=== PATIENT | female | born 2000 | race Caucasian/White ===

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

== ENCOUNTER 2018-01-10 20:51 | Emergency (ER) | payer MEDICAID ==
--- NOTE | 2018-01-10 22:18 | ED ---
Psych HPI - General Chief Complaint: Psychiatric Symptoms Stated Complaint: MENTAL HEALTH Source: patient, family Mode of arrival: ambulatory - History of Present Illness Initial Comments: The patient is a 17-year-old female with no significant past medical history who presents to the emergency department today for evaluation of depression and suicidal thoughts. Patient reports that she has a very bad relationship with her father and that recently he has been causing a lot of problems in her life. She reports that she spends a lot of time alone and has been feeling very depressed and yesterday cut herself on her left wrist superficially. This was her first episode of self-harm behavior. She reports that she's just been feeling depressed over the past few years but over the past month has been feeling suicidal because she feels she cannot escape her current situation. - Related Data Home Medications Medication Instructions Recorded Confirmed No Known Home Medications 01/10/18 01/10/18 Allergies Allergy/AdvReac Type Severity Reaction Status Date / Time No Known Allergies Allergy Verified 01/10/18 21:23 Review of Systems ROS Statement: Those systems with pertinent positive or pertinent negative responses have been documented in the HPI. ROS Other: All systems not noted in ROS Statement are negative. Past Medical History Past Medical History: Asthma History of Any Multi-Drug Resistant Organisms: None Reported Past Surgical History: No Surgical Hx Reported Past Psychological History: No Psychological Hx Reported Smoking Status: Never smoker Past Alcohol Use History: None Reported Past Drug Use History: None Reported General Exam - General Exam Comments Initial Comments: Physical Exam GENERAL: Patient is well-developed and well-nourished. Patient is nontoxic and well- hydrated and is in no distress. HENT: Normocephalic, Atraumatic. EYES: PERRL, EOMI PULMONARY: Unlabored respirations. No audible rales rhonchi or wheezing was noted. CARDIOVASCULAR: There is a regular rate and rhythm without any murmurs gallops or rubs. ABDOMEN: Soft and nontender with normal bowel sounds. SKIN: Professional abrasion to left lateral wrist overlying the radius, no deep lacerations noted : Deferred NEUROLOGIC: Patient is alert and oriented x3. Moving all extremities spontaneously MUSCULOSKELETAL: Normal extremities with adequate strength and full range of motion. No lower extremity swelling or edema. No calf tenderness. PSYCHIATRIC: Depression Limitations: no limitations Limitations: no limitations Course Vital Signs 01/10/18 01/10/18 20:53 20:56 Temperature 97.9 F Pulse Rate 69 Respiratory 16 18 Rate Blood Pressure 143/89 O2 Sat by Pulse 100 Oximetry Medical Decision Making - Medical Decision Making Patient was seen and evaluated, history was obtained from the patient and mother bedside Patient with no psychiatric history presenting with depression and passive suicidal thoughts. Does express a lot of anxiety over stresses caused by her estranged father. Her estranged father is recently reappeared in her life and this is causing her significant stress. Patient also expresses stress over being alone a majority of the time. Patient' s mother works nights so patient is alone at home during the night. 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 Patient's medically cleared for evaluation by psychiatry. Patient was evaluated by the psychiatric nurse her care was discussed with the psychiatrist on-call and decision was made that the patient was stable for outpatient counseling. Patient was able to contract for safety. Her mother will stay home with her tonight. Patient was reevaluated after meeting with psych. Patient did confirm that she feels comfortable going home. Mother also. They feel comfortable with discharge at this time. Return parameters were discussed. I advised the patient that if she has any concerns or thoughts of self-harm or any feeling that she is not safe she can call 911 any time to return to the emergency department. Disposition Clinical Impression: Depression Disposition: HOME SELF-CARE Condition: Stable Instructions: Depression (ED), Help Prevent Suicide in Children and Adolescents (ED) Is patient prescribed a controlled substance at d/c from ED?: No Referrals: Telma Martinez MD [Primary Care Provider] - 1-2 days
[2018-01-11 02:02] VITALS: BP 129/86; PULSE 88; RESP 19; TEMP 97.8
== END 2018-01-11 00:33 | disposition home or self-care (01) ==
LOC: EC 20:51
DX: F32.9 Major depressive disorder, single episode, unspecified (principal)
CPT/HCPCS: 99284

== ENCOUNTER 2018-08-03 18:38 | Emergency (ER) | payer MEDICAID ==
[2018-08-03] MEDS ORDERED: ONDANSETRON 4 MG/2 ML VIAL IVP STA (20:16)
[2018-08-03] MEDS ORDERED: SODIUM CHLORIDE 0.9% 1,000 ML IV STA (20:16)
[2018-08-03 21:04] LABS: Basophils % (A) 0 %; Eosinophils # (A) 0.4 k/uL (0-0.7); Eosinophils % (A) 3 %; HCT 47.5 % (34.0-46.0); HGB 15.9 gm/dL (11.4-16.0); Lymphocytes # (A) 1.6 k/uL (1.0-4.8); Lymphocytes % (A) 12 %; MCHC 33.4 g/dL (31.0-37.0); Monocytes # (A) 0.3 k/uL (0-1.0); Monocytes % (A) 3 %; Neutrophils # (A) 10.6 k/uL (1.3-7.7); Neutrophils % (A) 81 %; Platelet Count 268 k/uL (150-450); RBC 5.28 m/uL (3.80-5.40); RDW 13.2 % (11.5-15.5)
[2018-08-03 21:06] LABS: Amorphous Sediment,Urine Many /hpf; Appearance,Urine Turbid (Clear); Bilirubin,Urine Negative (Negative); Blood,Urine Small (Negative); Color,Urine Yellow; Glucose,Urine (UA) Negative (Negative); Ketones,Urine Negative (Negative); Leukocyte Esterase,Urine Negative (Negative); Mucus,Urine Many /hpf; Nitrite,Urine Negative (Negative); PH, Urine 5.5 (5.0-8.0); Protein,Urine 1+ (Negative); WBC,Urine 6 /hpf (0-5)
[2018-08-03 21:13] LABS: ALT 27 U/L (9-52); AST 28 U/L (14-36); Albumin 4.9 g/dL (3.5-5.0); Alkaline Phosphatase 63 U/L (38-126); Amylase 47 U/L (30-110); Anion Gap 9 mmol/L; Blood Urea Nitrogen 8 mg/dL (7-17); Calcium 9.8 mg/dL (8.4-10.2); Carbon Dioxide 23 mmol/L (22-30); Chloride 108 mmol/L (98-107); Glucose 85 mg/dL (74-99); Lipase 48 U/L (23-300); Potassium 4.5 mmol/L (3.5-5.1); Sodium 140 mmol/L (137-145); Total Protein 8.2 g/dL (6.3-8.2)
[2018-08-03] MEDS ORDERED: KETOROLAC 30 MG/ML 1 ML VIAL IVP STA (21:18)
--- NOTE | 2018-08-03 22:34 | CT ---
EXAM: CT Abdomen and Pelvis With Intravenous Contrast CLINICAL HISTORY: ITS.REASON CT Reason: abdominal pain TECHNIQUE: Axial computed tomography images of the abdomen and pelvis with intravenous contrast. CTDI is 18.7 mGy and DLP is 902.7 mGy-cm. This CT exam was performed using one or more of the following dose reduction techniques: automated exposure control, adjustment of the mA and/or kV according to patient size, and/or use of iterative reconstruction technique. COMPARISON: No relevant prior studies available. FINDINGS: Lung bases: Unremarkable. No mass. No consolidation. ABDOMEN: Liver: Unremarkable. No mass. Gallbladder and bile ducts: Unremarkable. No calcified stones. No ductal dilation. Pancreas: Unremarkable. No mass. No ductal dilation. Spleen: Unremarkable. No splenomegaly. Adrenals: Unremarkable. No mass. Kidneys and ureters: Unremarkable. No solid mass. No hydronephrosis. Stomach and bowel: Unremarkable. No obstruction. No mucosal thickening. PELVIS: Appendix: No findings to suggest acute appendicitis. Bladder: Unremarkable. No mass. Reproductive: Unremarkable as visualized. ABDOMEN and PELVIS: Intraperitoneal space: Unremarkable. No free air. No significant fluid collection. Bones/joints: No acute fracture. No dislocation. Degenerative disc disease at L5-S1. Soft tissues: Small fat-containing umbilical hernia. Vasculature: Unremarkable. No abdominal aortic aneurysm. Lymph nodes: Unremarkable. No enlarged lymph nodes. IMPRESSION: No acute findings in the abdomen or pelvis.
[2018-08-03] MEDS ORDERED: ONDANSETRON 4 MG ODT STARTER PACK 2 TAB BTL PO STA (23:07)
--- NOTE | 2018-08-03 23:07 | ED ---
Abdominal Pain HPI - General Chief Complaint: Abdominal Pain Stated Complaint: NVD Time Seen by Provider: 08/03/18 20:07 Source: patient Mode of arrival: wheelchair Limitations: no limitations - History of Present Illness Initial Comments: 17-year-old female patient presents to the emergency department today for evaluation of vomiting, diarrhea, abdominal pain. Patient states over the last month she has been sick with suprapubic pain and pressure. Patient states she did develop urinary incontinence. States that she has seen the primary care physician as well as the urologist for evaluation and they were unable to determine the cause of her symptoms. Patient states earlier today she did develop nausea had 2 episodes of vomiting and also diarrhea. Patient states she was also incontinent of stool during a vomiting episode. She denies any hem aturia, dysuria, urinary urgency, urinary frequency. Denies any chance of . States that her doctor was going to perform a CAT scan, which she has scheduled on August 10. Patient denies any fever or chills with this. Denies any hematochezia or melena. Patient denies any recent rash, shortness breath, chest pain, back pain, numbness, tingling, dizziness, weakness, hematuria, dysuria, urinary urgency, urinary frequency, headache, visual changes, or any other complaints. - Related Data Home Medications Medication Instructions Recorded Confirmed No Known Home Medications 01/10/18 08/03/18 Allergies Allergy/AdvReac Type Severity Reaction Status Date / Time No Known Allergies Allergy Verified 08/03/18 20:35 Review of Systems ROS Statement: Those systems with pertinent positive or pertinent negative responses have been documented in the HPI. ROS Other: All systems not noted in ROS Statement are negative. Past Medical History Past Medical History: Asthma History of Any Multi-Drug Resistant Organisms: None Reported Past Surgical History: No Surgical Hx Reported Past Psychological History: No Psychological Hx Reported Smoking Status: Never smoker Past Alcohol Use History: None Reported Past Drug Use History: Marijuana General Exam Limitations: no limitations General appearance: alert, in no apparent distress, other (Physical well- developed, well-nourished adult female patient in no acute distress. Vital signs upon presentation are temperature 98.8F, pulse 69, respirations 20, blood pressure 139/88, pulse ox 98% on room air.) Eye exam: Present: normal appearance, PERRL, EOMI. Absent: scleral icterus, conjunctival injection, periorbital swelling ENT exam: Present: normal exam, normal oropharynx, mucous membranes moist Respiratory exam: Present: normal lung sounds bilaterally. Absent: respiratory distress, wheezes, rales, rhonchi, stridor Cardiovascular Exam: Present: regular rate, normal rhythm, normal heart sounds. Absent: systolic murmur, diastolic murmur, rubs, gallop, clicks GI/Abdominal exam: Present: soft, normal bowel sounds. Absent: distended, tenderness, guarding, rebound, rigid Neurological exam: Present: alert, oriented X3, CN II-XII intact Psychiatric exam: Present: normal affect, normal mood Skin exam: Present: warm, dry, intact, normal color. Absent: rash Course Vital Signs 08/03/18 08/03/18 19:39 23:31 Temperature 98.8 F 98 F Pulse Rate 69 62 Respiratory 20 19 Rate Blood Pressure 139/88 127/72 O2 Sat by Pulse 98 98 Oximetry Medical Decision Making - Medical Decision Making 17-year-old female patient presents to the emergency department today for evaluation of vomiting and diarrhea. Physical examination reveals soft nontender abdomen. White blood cell count is 13.0. Urinalysis shows [address] abdomen and pelvis was obtained and showed no acute abnormalities. I did discuss findings and results with the patient and parent. We did discuss symptoms are most likely related to viral gastroenteritis. White blood cell count is likely reactive from vomiting. We will send urine for culture. Patient will be discharged follow up with her primary care physician for recheck in 1-2 days. Return parameters were discussed in detail. She verbalizes understanding and agrees with this plan. - Lab Data Result diagrams: 08/03/18 20:53 08/03/18 20:53 Lab Results 08/03/18 08/03/18 08/03/18 Range/Units 20:15 20:15 20:53 WBC (4.0-11.0) k/uL RBC (3.80-5.40) m/uL Hgb (11.4-16.0) gm/dL Hct (34.0-46.0) % MCV (80.0-100.0) fL MCH (25.0-35.0) pg MCHC (31.0-37.0) g/dL RDW (11.5-15.5) % Plt Count (150-450) k/uL Neutrophils % % Lymphocytes % % Monocytes % % Eosinophils % % Basophils % % Neutrophils # (1.3-7.7) k/uL Lymphocytes # (1.0-4.8) k/uL Monocytes # (0-1.0) k/uL Eosinophils # (0-0.7) k/uL Basophils # (0-0.2) k/uL Sodium 140 (137-145) mmol/L Potassium 4.5 (3.5-5.1) mmol/L Chloride 108 H (98-107) mmol/L Carbon Dioxide 23 (22-30) mmol/L Anion Gap 9 mmol/L BUN 8 (7-17) mg/dL Creatinine 0.83 (0.52-1.04) mg/dL Est GFR (CKD-EPI)AfAm >90 (>60 ml/min/1.73 sqM) Est GFR (CKD-EPI)NonAf >90 (>60 ml/min/1.73 sqM) Glucose 85 (74-99) mg/dL Calcium 9.8 (8.4-10.2) mg/dL Total Bilirubin 1.0 (0.2-1.3) mg/dL AST 28 (14-36) U/L ALT 27 (9-52) U/L Alkaline Phosphatase 63 (38-126) U/L Total Protein 8.2 (6.3-8.2) g/dL Albumin 4.9 (3.5-5.0) g/dL Amylase 47 (30-110) U/L Lipase 48 (23-300) U/L Urine Color Yellow Urine Appearance Turbid H (Clear) Urine pH 5.5 (5.0-8.0) Ur Specific [place] 1.040 H (1.001-1.035) Urine Protein 1+ H (Negative) Urine Glucose (UA) Negative (Negative) Urine Ketones Negative (Negative) Urine Blood Small H (Negative) Urine Nitrite Negative (Negative) Urine Bilirubin Negative (Negative) Urine Urobilinogen 2.0 (<2.0) mg/dL Ur Leukocyte Esterase Negative (Negative) Urine WBC 6 H (0-5) /hpf Amorphous Sediment Many H (None) /hpf Urine Mucus Many H (None) /hpf Urine HCG, Qual Not Detected (Not Detectd) 08/03/18 Range/Units 20:53 WBC 13.0 H (4.0-11.0) k/uL RBC 5.28 (3.80-5.40) m/uL Hgb 15.9 (11.4-16.0) gm/dL Hct 47.5 H (34.0-46.0) % MCV 90.0 (80.0-100.0) fL MCH 30.0 (25.0-35.0) pg MCHC 33.4 (31.0-37.0) g/dL RDW 13.2 (11.5-15.5) % Plt Count 268 (150-450) k/uL Neutrophils % 81 % Lymphocytes % 12 % Monocytes % 3 % Eosinophils % 3 % Basophils % 0 % Neutrophils # 10.6 H (1.3-7.7) k/uL Lymphocytes # 1.6 (1.0-4.8) k/uL Monocytes # 0.3 (0-1.0) k/uL Eosinophils # 0.4 (0-0.7) k/uL Basophils # 0.0 (0-0.2) k/uL Sodium (137-145) mmol/L Potassium (3.5-5.1) mmol/L Chloride (98-107) mmol/L Carbon Dioxide (22-30) mmol/L Anion Gap mmol/L BUN (7-17) mg/dL Creatinine (0.52-1.04) mg/dL Est GFR (CKD-EPI)AfAm (>60 ml/min/1.73 sqM) Est GFR (CKD-EPI)NonAf (>60 ml/min/1.73 sqM) Glucose (74-99) mg/dL Calcium (8.4-10.2) mg/dL Total Bilirubin (0.2-1.3) mg/dL AST (14-36) U/L ALT (9-52) U/L Alkaline Phosphatase (38-126) U/L Total Protein (6.3-8.2) g/dL Albumin (3.5-5.0) g/dL Amylase (30-110) U/L Lipase (23-300) U/L Urine Color Urine Appearance (Clear) Urine pH (5.0-8.0) Ur Specific [place] (1.001-1.035) Urine Protein (Negative) Urine Glucose (UA) (Negative) Urine Ketones (Negative) Urine Blood (Negative) Urine Nitrite (Negative) Urine Bilirubin (Negative) Urine Urobilinogen (<2.0) mg/dL Ur Leukocyte Esterase (Negative) Urine WBC (0-5) /hpf Amorphous Sediment (None) /hpf Urine Mucus (None) /hpf Urine HCG, Qual (Not Detectd) - Radiology Data Radiology results: report reviewed, image reviewed CT abdomen and pelvis with contrast was obtained. Report was reviewed in its entirety. Impression by Dr. Lewis shows no acute findings in the abdomen or pelvis. Disposition Clinical Impression: Gastroenteritis Disposition: HOME SELF-CARE Condition: Good Instructions (If sedation given, give patient instructions): Gastroenteritis (ED) Additional Instructions: Start with clear liquid diet and advance as tolerated. Take medications as directed. Follow-up with your primary care physician for recheck in 1-2 days. Return to the emergency department immediately for any new, worsening, or concerning symptoms. Is patient prescribed a controlled substance at d/c from ED?: No Referrals: Telma Martinez MD [Primary Care Provider] - 1-2 days Time of Disposition: 23:07
[2018-08-03 23:33] VITALS: BP 127/72; PULSE 62; RESP 19; TEMP 98
== END 2018-08-03 23:31 | disposition home or self-care (01) ==
LOC: EC 18:38
DX: K52.9 Noninfective gastroenteritis and colitis, unspecified (principal)
CPT/HCPCS: 36415; 80053; 82150; 83690; 85025; 81001; 81025; 74177; 99284; 96374; 96375; 96361; J2405; J1885; S0119; Q9967

== ENCOUNTER → 2020-05-30 | Outpatient (CLI) | payer MEDICAID ==
[2020-05-30 18:55] LABS: HCT 42.9 % (37.2-46.3); HGB 14.8 g/dL (12.0-15.0); MCH 31.6 pg (27.0-32.0); MCHC 34.5 g/dL (32.0-37.0); MCV 91.5 fL (80.0-97.0); Mean Platelet Volume 13.8 fL (9.5-12.2); Platelet Count 202 X 10*3/uL (140-440); RBC 4.69 X 10*6/uL (4.10-5.20); RDW 11.5 % (11.5-14.5); WBC 8.19 X 10*3/uL (4.50-10.00)
[2020-05-30 22:42] LABS: HIV 2 AB Non-Reactive (Non-Reactive); HIV AB P24 Non-Reactive (Non-Reactive); HIV P24 AG Non-Reactive (Non-Reactive)
[2020-05-31 00:35] LABS: Hepatitis B Surface Antigen Non-Reactive (Non-Reactive)
[2020-05-31 01:45] LABS: Urine Alcohol Negative (Negative); Urine Barbiturate Negative (Negative); Urine Cocaine Negative (Negative); Urine Methadone Negative (Negative); Urine Opiates Negative (Negative); Urine Phencyclidine Negative (Negative)
== END | disposition home or self-care (01) ==
LOC: LABWHC1 13:36
PROVIDERS: ATTEND Obstetrics & Gynecology Obstetrics
DX: Z34.02 Encounter for supervision of normal first pregnancy, second trimester (principal); Z3A.00 Weeks of gestation of pregnancy not specified
CPT/HCPCS: 36415; 80306; 85027; 86762; 86780; 86850; 86900; 86901; 87340; 87390

== ENCOUNTER 2020-06-07 18:03 | Emergency (ER) | payer MEDICAID ==
[2020-06-07] MEDS ORDERED: SODIUM CHLORIDE 0.9% 1,000 ML IV STA (19:51)
[2020-06-07 20:38] LABS: Basophils % (A) 0 %; Eosinophils % (A) 0 %; HCT 41.9 % (34.0-46.0); HGB 14.4 gm/dL (11.4-16.0); Lymphocytes # (A) 1.3 k/uL (1.0-4.8); Lymphocytes % (A) 25 %; MCHC 34.3 g/dL (31.0-37.0); MCV 90.5 fL (80.0-100.0); Monocytes # (A) 0.2 k/uL (0-1.0); Monocytes % (A) 4 %; Neutrophils # (A) 3.6 k/uL (1.3-7.7); Neutrophils % (A) 70 %; Platelet Count 152 k/uL (150-450); RBC 4.63 m/uL (3.80-5.40); RDW 12.5 % (11.5-15.5); WBC 5.2 k/uL (3.8-10.6)
[2020-06-07 20:54] LABS: Appearance,Urine Turbid (Clear); Bacteria,Urine Many /hpf; Bilirubin,Urine Negative (Negative); Blood,Urine Negative (Negative); Budding Yeast,Urine Many /hpf; Calcium Oxalate Crystals,Urine Many /hpf; Color,Urine Yellow; Glucose,Urine (UA) Negative (Negative); Ketones,Urine 2+ (Negative); Leukocyte Esterase,Urine Large (Negative); Mucus,Urine Many /hpf; Nitrite,Urine Negative (Negative); Protein,Urine 1+ (Negative); RBC,Urine 11 /hpf (0-5); Specific Gravity,Urine 1.028 (1.001-1.035); Squamous Epithelial Cell,Urine 11 /hpf (0-4); Urobilinogen,Urine <2.0 mg/dL (<2.0); WBC,Urine 32 /hpf (0-5)
--- NOTE | 2020-06-07 21:26 | XR ---
EXAMINATION TYPE: XR chest 2V DATE OF EXAM: 06/07/2020 COMPARISON: 01/16/2016. HISTORY: Dizziness TECHNIQUE: Frontal and lateral views of the chest are obtained. FINDINGS: There is no focal air space opacity, pleural effusion, or pneumothorax seen. The cardiac silhouette size is within normal limits. The osseous structures are intact. IMPRESSION: No acute cardiopulmonary process.
[2020-06-07] MEDS ORDERED: cefTRIAXone IN SWFI 1,000 MG/10 ML SYRINGE IVP STA (21:32)
[2020-06-07 21:34] LABS: Chloride 103 mmol/L (98-107)
[2020-06-07 21:36] LABS: African American GFR (CKD) >90 (>60 ml/min/1.73 sqM); Albumin 4.1 g/dL (3.5-5.0); Alkaline Phosphatase 61 U/L (38-126); Anion Gap 10 mmol/L; Carbon Dioxide 22 mmol/L (22-30); Glucose 81 mg/dL (74-99); Non-African American GFR(CKD) >90 (>60 ml/min/1.73 sqM); Sodium 135 mmol/L (137-145); Total Bilirubin 0.4 mg/dL (0.2-1.3); Total Protein 6.9 g/dL (6.3-8.2)
[2020-06-07 21:38] LABS: ALT 13 U/L (4-34); AST 21 U/L (14-36); Blood Urea Nitrogen 7 mg/dL (7-17); Calcium 9.5 mg/dL (8.4-10.2); Potassium 3.8 mmol/L (3.5-5.1)
--- NOTE | 2020-06-07 22:02 | ED ---
Dizziness HPI - General Chief Complaint: Dizziness Stated Complaint: 18wks preg/dizziness Time Seen by Provider: 06/07/20 18:10 Source: patient Mode of arrival: wheelchair Limitations: no limitations - History of Present Illness Initial Comments: 19-year-old female, currently 18 weeks presents emergency room with reported dizziness, fatigue and presyncopal sensation. States that for the past several days she felt like she was going to pass out at work. States that she has had nausea however has had good oral intake. Denies any chest pain. No previous history of cardiac disease. She is currently 18 weeks and denies any issues with her . Denies any cramping or vaginal bleeding. No fevers or chills. Is concerned for Covid as she has had some contact with Covid positive people. Denies any history of sudden cardiac . No other alleviating, precipitating or modifying factors - Related Data Previous Rx's Medication Instructions Recorded Cephalexin [Keflex] 500 mg PO BID 1 Days #14 cap 06/07/20 Allergies Allergy/AdvReac Type Severity Reaction Status Date / Time No Known Allergies Allergy Verified 06/07/20 18:09 Review of Systems ROS Statement: Those systems with pertinent positive or pertinent negative responses have been documented in the HPI. ROS Other: All systems not noted in ROS Statement are negative. Past Medical History Past Medical History: Asthma History of Any Multi-Drug Resistant Organisms: None Reported Past Surgical History: No Surgical Hx Reported Past Psychological History: No Psychological Hx Reported Smoking Status: Never smoker Past Alcohol Use History: None Reported Past Drug Use History: Marijuana General Exam Limitations: no limitations General appearance: alert, in no apparent distress Head exam: Present: atraumatic, normocephalic, normal inspection Eye exam: Present: normal appearance, PERRL, EOMI. Absent: scleral icterus, conjunctival injection, periorbital swelling ENT exam: Present: normal exam, mucous membranes moist Neck exam: Present: normal inspection. Absent: tenderness, meningismus, lymphadenopathy Respiratory exam: Present: normal lung sounds bilaterally. Absent: respiratory distress, wheezes, rales, rhonchi, stridor Cardiovascular Exam: Present: regular rate, normal rhythm, normal heart sounds. Absent: systolic murmur, diastolic murmur, rubs, gallop, clicks GI/Abdominal exam: Present: soft, normal bowel sounds. Absent: distended, tenderness, guarding, rebound, rigid Extremities exam: Present: normal inspection, full ROM, normal capillary refill. Absent: tenderness, pedal edema, joint swelling, calf tenderness Back exam: Present: normal inspection Neurological exam: Present: alert, oriented X3, CN II-XII intact Psychiatric exam: Present: normal affect, normal mood Skin exam: Present: warm, dry, intact, normal color. Absent: rash Course Vital Signs 06/07/20 06/07/20 18:09 22:43 Temperature 97.9 F 99.9 F H Pulse Rate 64 102 H Respiratory 16 18 Rate Blood Pressure 114/73 126/80 O2 Sat by Pulse 100 98 Oximetry EKG Findings - EKG Comments: EKG Findings:: EKG demonstrates normal sinus rhythm with a ventricular rate of 67. MO interval 178. QRS 72. QTC of 450. No acute ST segment elevations or depressions Medical Decision Making - Medical Decision Making The patient is placed in the hallway 21. A thorough history and physical sy mptoms performed. Bedside ultrasound was performed which does demonstrate positive movement and positive heart tones. Heart rate of 133. IV is established the patient was given a liter bolus of normal saline. Laboratory studies were conducted. Urinalysis does demonstrate some white blood cells and white blood cell clumps. She was given a dose of Rocephin. Covid is detected. Chest x-ray demonstrates no acute cardiopulmonary process. At this time the patient will be discharged home. She maintains her oxygen saturations without increased work of breathing. Call and notify her OB of her diagnosis. Return to the emergency room for any new or worsening symptoms. Patient was placed on Keflex twice daily for the next 7 days. Patient agreed to this treatment plan and was discharged in stable condition - Lab Data Result diagrams: 06/07/20 20:30 06/07/20 20:30 Lab Results 06/07/20 06/07/20 06/07/20 Range/Units 20:30 20:30 20:30 WBC 5.2 (3.8-10.6) k/uL RBC 4.63 (3.80-5.40) m/uL Hgb 14.4 (11.4-16.0) gm/dL Hct 41.9 (34.0-46.0) % MCV 90.5 (80.0-100.0) fL MCH 31.0 (25.0-35.0) pg MCHC 34.3 (31.0-37.0) g/dL RDW 12.5 (11.5-15.5) % Plt Count 152 (150-450) k/uL MPV 10.0 Neutrophils % 70 % Lymphocytes % 25 % Monocytes % 4 % Eosinophils % 0 % Basophils % 0 % Neutrophils # 3.6 (1.3-7.7) k/uL Lymphocytes # 1.3 (1.0-4.8) k/uL Monocytes # 0.2 (0-1.0) k/uL Eosinophils # 0.0 (0-0.7) k/uL Basophils # 0.0 (0-0.2) k/uL Sodium 135 L (137-145) mmol/L Potassium 3.8 (3.5-5.1) mmol/L Chloride 103 (98-107) mmol/L Carbon Dioxide 22 (22-30) mmol/L Anion Gap 10 mmol/L BUN 7 (7-17) mg/dL Creatinine 0.56 (0.52-1.04) mg/dL Est GFR (CKD-EPI)AfAm >90 (>60 ml/min/1.73 sqM) Est GFR (CKD-EPI)NonAf >90 (>60 ml/min/1.73 sqM) Glucose 81 (74-99) mg/dL Calcium 9.5 (8.4-10.2) mg/dL Total Bilirubin 0.4 (0.2-1.3) mg/dL AST 21 (14-36) U/L ALT 13 (4-34) U/L Alkaline Phosphatase 61 (38-126) U/L Total Protein 6.9 (6.3-8.2) g/dL Albumin 4.1 (3.5-5.0) g/dL Urine Color Yellow Urine Appearance Turbid H (Clear) Urine pH 6.0 (5.0-8.0) Ur Specific [place] 1.028 (1.001-1.035) Urine Protein 1+ H (Negative) Urine Glucose (UA) Negative (Negative) Urine Ketones 2+ H (Negative) Urine Blood Negative (Negative) Urine Nitrite Negative (Negative) Urine Bilirubin Negative (Negative) Urine Urobilinogen <2.0 (<2.0) mg/dL Ur Leukocyte Esterase Large H (Negative) Urine RBC 11 H (0-5) /hpf Urine WBC 32 H (0-5) /hpf Urine WBC Clumps Moderate H (None) /hpf Ur Squamous Epith Cells 11 H (0-4) /hpf Calcium Oxalate Crystal Many H (None) /hpf Urine Bacteria Many H (None) /hpf Urine Mucus Many H (None) /hpf Urine Yeast (Budding) Many H (None) /hpf Coronavirus (PCR) (Not Detectd) 06/07/20 Range/Units 20:45 WBC (3.8-10.6) k/uL RBC (3.80-5.40) m/uL Hgb (11.4-16.0) gm/dL Hct (34.0-46.0) % MCV (80.0-100.0) fL MCH (25.0-35.0) pg MCHC (31.0-37.0) g/dL RDW (11.5-15.5) % Plt Count (150-450) k/uL MPV Neutrophils % % Lymphocytes % % Monocytes % % Eosinophils % % Basophils % % Neutrophils # (1.3-7.7) k/uL Lymphocytes # (1.0-4.8) k/uL Monocytes # (0-1.0) k/uL Eosinophils # (0-0.7) k/uL Basophils # (0-0.2) k/uL Sodium (137-145) mmol/L Potassium (3.5-5.1) mmol/L Chloride (98-107) mmol/L Carbon Dioxide (22-30) mmol/L Anion Gap mmol/L BUN (7-17) mg/dL Creatinine (0.52-1.04) mg/dL Est GFR (CKD-EPI)AfAm (>60 ml/min/1.73 sqM) Est GFR (CKD-EPI)NonAf (>60 ml/min/1.73 sqM) Glucose (74-99) mg/dL Calcium (8.4-10.2) mg/dL Total Bilirubin (0.2-1.3) mg/dL AST (14-36) U/L ALT (4-34) U/L Alkaline Phosphatase (38-126) U/L Total Protein (6.3-8.2) g/dL Albumin (3.5-5.0) g/dL Urine Color Urine Appearance (Clear) Urine pH (5.0-8.0) Ur Specific [place] (1.001-1.035) Urine Protein (Negative) Urine Glucose (UA) (Negative) Urine Ketones (Negative) Urine Blood (Negative) Urine Nitrite (Negative) Urine Bilirubin (Negative) Urine Urobilinogen (<2.0) mg/dL Ur Leukocyte Esterase (Negative) Urine RBC (0-5) /hpf Urine WBC (0-5) /hpf Urine WBC Clumps (None) /hpf Ur Squamous Epith Cells (0-4) /hpf Calcium Oxalate Crystal (None) /hpf Urine Bacteria (None) /hpf Urine Mucus (None) /hpf Urine Yeast (Budding) (None) /hpf Coronavirus (PCR) Detected A (Not Detectd) Disposition Clinical Impression: COVID-19, Second trimester , Pre-syncope, UTI (urinary tract infection) Disposition: HOME SELF-CARE Condition: Stable Instructions (If sedation given, give patient instructions): Coronavirus Disease 2019 (COVID-19), Urinary Tract Infection in (ED) Additional Instructions: You have been diagnosed with Covid. Quarantine until your symptoms improved. Take Tylenol for fever. Called your OB and inform them of your diagnosis. Return to the ED for any new or worsening symptoms. Prescriptions: Cephalexin [Keflex] 500 mg PO BID 1 Days #14 cap Is patient prescribed a controlled substance at d/c from ED?: No Referrals: None,Stated [Primary Care Provider] - 1-2 days Time of Disposition: 22:01
[2020-06-07 22:45] VITALS: BP 126/80; PULSE 102; RESP 18; TEMP 99.9
== END 2020-06-07 22:45 | disposition home or self-care (01) ==
LOC: EC 18:03
DX: O98.52 Other viral diseases complicating childbirth (principal); O26.812 Pregnancy related exhaustion and fatigue, second trimester; O99.322 Drug use complicating pregnancy, second trimester; O23.42 Unspecified infection of urinary tract in pregnancy, second trimester; O99.512 Diseases of the respiratory system complicating pregnancy, second trimester; U07.1 COVID-19; R55 Syncope and collapse; Z37.9 Outcome of delivery, unspecified; J45.909 Unspecified asthma, uncomplicated; F12.90 Cannabis use, unspecified, uncomplicated; Z3A.18 18 weeks gestation of pregnancy
CPT/HCPCS: 36415; 93005; 80053; 85025; 81001; 87086; 87635; 71046; 99284; 96374; J0696

== ENCOUNTER → 2020-06-18 | Outpatient (CLI) | payer MEDICAID ==
[~2020-06-18] MED LIST: cefTRIAXone 500 MG VIAL IM NR
[2020-06-18 15:11] VITALS: BP 122/76; PULSE 80; RESP 16; TEMP 97.8
== END ==
LOC: PROCWHC3 13:28
PROVIDERS: ATTEND Obstetrics & Gynecology Obstetrics
DX: A54.9 Gonococcal infection, unspecified (principal)
CPT/HCPCS: 96372; J2001; J0696

== ENCOUNTER 2020-11-05 06:00 | Inpatient (IN) | payer MEDICAID ==
[2020-11-05] MEDS ORDERED: TERBUTALINE 1 MG/ML VIAL SQ PRN (06:17)
[2020-11-05] MEDS ORDERED: CARBOPROST TROMETHAMINE 250 MCG/ML 1 ML AMP IM PRN (06:17)
[2020-11-05] MEDS ORDERED: OXYTOCIN 10 UNIT/ML 1 ML VIAL IM PRN (06:17)
[2020-11-05] MEDS ORDERED: METHYLERGONOVINE 0.2 MG/ML 1 ML AMP IM PRN (06:17)
[2020-11-05] MEDS ORDERED: LIDOCAINE 0.5% (PF) 5 MG/ML (50 ML SDV) SQ PRN (06:17)
[2020-11-05] MEDS: LACTATED RINGERS 1,000 ML IV SCH ×2 (06:21→14:39)
[2020-11-05] MEDS ORDERED: OXYTOCIN 30 UNITS/500 ML NS 30 UNIT in SALINE 1 500ML.BAG IV SCH ×2 (06:30→21:18)
[2020-11-05] MEDS ORDERED: AMPICILLIN 2,000 MG in SODIUM CHLORIDE 0.9% 100 ML IVPB ONE (06:30)
[2020-11-05 06:46] LABS: Basophils % (A) 0 %; Eosinophils # (A) 0.3 k/uL (0-0.7); Eosinophils % (A) 3 %; HCT 40.1 % (34.0-46.0); HGB 13.9 gm/dL (11.4-16.0); Lymphocytes # (A) 2.6 k/uL (1.0-4.8); Lymphocytes % (A) 25 %; MCHC 34.7 g/dL (31.0-37.0); MCV 95.3 fL (80.0-100.0); Mean Platelet Volume 11.5; Monocytes # (A) 0.4 k/uL (0-1.0); Monocytes % (A) 4 %; Neutrophils # (A) 6.8 k/uL (1.3-7.7); Neutrophils % (A) 66 %; Platelet Count 171 k/uL (150-450); RBC 4.21 m/uL (3.80-5.40); RDW 13.4 % (11.5-15.5); WBC 10.3 k/uL (3.8-10.6)
--- NOTE | 2020-11-05 09:28 | P.HPOB ---
History of Present Illness H&P Date: 11/05/20 Chief Complaint: IUP at 39 and 0/7 weeks, DIONI This is a 20-year-old 1 para 0 at 39-0/7 weeks that presents to labor and delivery for induction of labor. Patient has been being monitored for single umbilical artery, low baseline was appreciated with reassuring testing, biophysical profiles of 88. Patient notes good movement. She denies contractions or vaginal bleeding. On blood work this patient has a blood type of A+, rubella status immun e, B surface antigen negative, HIV negative, RPR nonreactive, group beta strep culture is positive. Review of Systems Constitutional: Denies chills, Denies fatigue, Denies fever Ears, nose, mouth and throat: Denies headache Cardiovascular: Reports leg edema Gastrointestinal: Denies constipation, Denies diarrhea, Denies nausea, Denies vomiting Genitourinary: Reports Past Medical History Past Medical History: Asthma Additional Past Medical History / Comment(s): Exercise induced asthma History of Any Multi-Drug Resistant Organisms: None Reported Past Surgical History: No Surgical Hx Reported Past Anesthesia/Blood Transfusion Reactions: No Reported Reaction Past Psychological History: No Psychological Hx Reported Smoking Status: Former smoker Past Alcohol Use History: None Reported Past Drug Use History: Marijuana Additional Drug Use History / Comment(s): Pt reports smoking medical marijuana before - Past Family History Mother History Unknown: Yes Family Medical History: Hypertension Medications and Allergies Home Medications Medication Instructions Recorded Confirmed Type Cephalexin [Keflex] 500 mg PO BID 1 Days #14 cap 06/07/20 06/18/20 Rx Allergies Allergy/AdvReac Type Severity Reaction Status Date / Time No Known Allergies Allergy Verified 06/18/20 15:12 Exam Osteopathic Statement: *. No significant issues noted on an osteopathic structural exam other than those noted in the History and Physical/Consult. Vital Signs Temp Pulse Resp BP 11/05/20 06:15 97.6 F 82 16 136/92 Intake and Output 11/04/20 11/05/20 11/05/20 22:59 06:59 14:59 Other: Weight 95.254 kg Targeted physical exam is performed in this date and last turner a well-nourished well-developed female in no acute distress, breathing is noted to be nonlabored, heart has a regular rhythm, abdomen is gravid. On cervical exam she is 2/50/-2 station amniotomy is performed and clear fluid was obtained. heart tones returned be category 1 and she is lane every 3 minutes. Results Result Diagrams: 11/05/20 06:25 Assessment and Plan (1) Term Current Visit: Yes Status: Acute Code(s): Z34.90 - ENCNTR FOR SUPRVSN OF NORMAL , UNSP, UNSP TRIMESTER SNOMED Code(s): 55007625 (2) Single umbilical artery Current Visit: Yes Status: Acute Code(s): Q27.0 - CONGENITAL ABSENCE AND HYPOPLASIA OF UMBILICAL ARTERY SNOMED Code(s): 632326710 (3) Positive GBS test Current Visit: Yes Status: Acute Code(s): B95.1 - STREPTOCOCCUS, GROUP B, CAUSING DISEASES CLASSD [facility] SNOMED Code(s): 938273057 Plan: 20-year-old at 39-0/7 weeks known single umbilical artery presents for induction of labor. Pitocin induction of labor is begun, known positive group beta strep cultures, IV antibiotic prophylaxis is begun. Patient does desire epidural, we'll place 1 cervical change is appreciated, anesthesia will be not ified.
[2020-11-05] MEDS: AMPICILLIN 1,000 MG in SODIUM CHLORIDE 0.9% 50 ML IVPB SCH ×3 (10:51→19:08)
[2020-11-05] MEDS ORDERED: BUTORPHANOL 1 MG/ML 1 ML VIAL IV PRN (12:13)
[2020-11-05] MEDS ORDERED: fentaNYL (PF) 50 MCG/ML 5 ML AMP ONE (15:27)
[2020-11-05] MEDS ORDERED: SODIUM CHLORIDE 0.9% 100 ML BAG ONE (15:27)
[2020-11-05] MEDS ORDERED: ROPIVACAINE 5MG/ML 20ML VIAL ONE (15:27)
[2020-11-05] MEDS ORDERED: CITRIC ACID-SODIUM CITRATE 15 ML CUP PO ONE (19:46)
[2020-11-05] MEDS ORDERED: MORPHINE SULFATE (PF) 0.3 MG/0.3 ML SYR ONE (20:12)
[2020-11-05] MEDS ORDERED: ONDANSETRON 4 MG/2 ML VIAL ONE (20:12)
[2020-11-05] MEDS ORDERED: OXYTOCIN 30 UNITS/500 ML NS BAG IV ONE (20:12)
[2020-11-05] MEDS ORDERED: HYDROmorphone 0.5 MG/0.5 ML SYRINGE IVP PRN (20:37)
[2020-11-05] MEDS ORDERED: KETOROLAC 15 MG/ML 1 ML VIAL IVP PRN (20:37)
[2020-11-05] MEDS ORDERED: diphenhydrAMINE 50 MG/ML 1 ML VIAL IVP PRN ×3 (20:37→21:18)
[2020-11-05] MEDS ORDERED: NALOXONE 0.4 MG/ML 1 ML VIAL IV PRN ×2 (20:37→21:18)
[2020-11-05] MEDS ORDERED: ONDANSETRON 4 MG/2 ML VIAL IVP PRN ×2 (20:37→21:18)
--- NOTE | 2020-11-05 21:10 | P.OP ---
Date of Procedure: 11/05/20 Preoperative Diagnosis: IUP at 39-0/7 weeks, arrest of descent and dilation Postoperative Diagnosis: Same Procedure(s) Performed: Primary low transverse section Anesthesia: epidural Surgeon: Jadyn Jc Building Maintenance Repairer #1: Jens Kovacs Estimated Blood Loss (ml): 238 IV fluids (ml): 1,200 Urine output (ml): 200 Pathology: other (Placenta) Disposition: observation Indications for Procedure: 20-year-old at 39 0/7 weeks that presented for induction of labor. Patient was noted to be 5 cm for approximately 4+ hours, no descent of the head was appreciated, option for primary was discussed with patient given her arrest of descent and dilation over the last 4 hours. Patient elected primary . Operative Findings: Normal uterus tubes and ovaries were appreciated, viable female delivered at 2026, weight of 7 lbs. 5 oz. with Apgars of 8 and 9 at one and 5 minutes respectively Description of Procedure: Patient was taken back to the operating suite where epidural anesthesia was found be adequate. She was then prepped and draped in the normal sterile fashion in the dorsal supine position. A Pfannenstiel skin incision was made the scalpel and carried through the underlying layer of fascia. Fascia was incised in the midline and extended laterally. The superior aspect of the fascial incision was then grasped farooq clamps, elevated and underlying rectus muscles dissected off sharply. Attention was then turned to the inferior aspect the fascial incision which was grasped farooq clamps, elevated and underlying rectus muscles dissected off sharply. Rectus muscles were in the midline the peritoneum was identified and entered. The bladder blade was then inserted into the pelvis. The vesicouterine peritoneum was identified and the bladder flap was created using sharp and blunt dissection. The bladder blade was then reinserted into the pelvis. Hysterotomy incision was made the scalpel, and extended laterally. The was encountered in a vertex presentation. The was delivered in the usual fashion the umbilicus was doubly clamped and cut. The placenta was then delivered spontaneously intact with a three-vessel cord being noted. The uterine incision was then closed with 0 Vicryl running locked fashion. A second imbricating suture was performed. Bleeding was noted on the right-hand side of the uterosacral multiple [id number] sutures were used to obtain hemostasis. The bladder was noted to be draining clear yellow urine throughout. The uterus was returned to the abdomen and hysterotomy incision was inspected hemostasis was appreciated. Surgicel powder was placed along the hysterotomy incision. The gutters had been cleared of all clots and debris prior to this. The peritoneum was then loosely reapproximated. The rectus muscles were then inspected and found be hemostatic. The fascia was then closed with 0 Vicryl in a running fashion from one lateral edge the other. The subcutaneous tissue was then irrigated found to be hemostatic and closed with 3-0 Vicryl. Skin was then closed with 4-0 Vicryl in a subcuticular fashion. Steri-Strips and sterile dressings were applied. The uterus is noted to be firm and below the umbilicus at this time. All counts were noted to be correct 2. PATIENT AND TOLERATED DELIVERY WELL AND ARE RESTING COMFORTABLY.
[2020-11-05] MEDS ORDERED: diphenhydrAMINE 25 MG CAP PO PRN (21:18)
[2020-11-05] MEDS ORDERED: METOCLOPRAMIDE 5 MG/ML 2 ML VIAL IVP PRN (21:18)
[2020-11-05] MEDS ORDERED: SIMETHICONE 80 MG CHEWABLE PO PRN (21:18)
[2020-11-05] MEDS ORDERED: diphenhydrAMINE 50 MG CAP PO PRN (21:18)
[2020-11-05] MEDS ORDERED: ZOLPIDEM 5 MG TAB PO PRN (21:18)
[2020-11-05] MEDS: ACETAMINOPHEN IV (For NPO) 1,000 MG in EMPTY BAG 1 BAG IVPB SCH (22:33)
[2020-11-05] MEDS: SENNOSIDES-DOCUSATE SODIUM 1 EACH TAB PO SCH (23:13)
[2020-11-05] MEDS: ACETAMINOPHEN TAB 500 MG TAB PO SCH (23:14)
[2020-11-06] MEDS: LACTATED RINGERS 1,000 ML IV SCH ×4 (00:31→07:25)
[2020-11-06] MEDS: AMPICILLIN 1,000 MG in SODIUM CHLORIDE 0.9% 50 ML IVPB SCH (00:32)
[2020-11-06] MEDS: IBUPROFEN 600 MG TAB PO SCH ×3 (03:03→16:25)
[2020-11-06] MEDS: IBUPROFEN IV 800 MG in SODIUM CHLORIDE 0.9% 250 ML IV SCH ×2 (03:04→04:24)
--- NOTE | 2020-11-06 06:44 | P.PN ---
Progress Note - Text Progress Note Date: 11/06/20 Postoperative day 1 status post section under epidural anesthesia, and epidural morphine given for postoperative analgesia, patient doing well, there is no anesthesia related complications, Patient had no headache, vital signs stable , Assessment and plan= postop day 1 status post , doing well there is no anesthesia related complication.
[2020-11-06 06:54] LABS: Basophils % (A) 0 %; Eosinophils # (A) 0.2 k/uL (0-0.7); Eosinophils % (A) 2 %; HCT 32.7 % (34.0-46.0); HGB 11.2 gm/dL (11.4-16.0); Lymphocytes % (A) 19 %; MCH 33.3 pg (25.0-35.0); MCHC 34.4 g/dL (31.0-37.0); MCV 96.9 fL (80.0-100.0); Mean Platelet Volume 12.6; Monocytes # (A) 0.3 k/uL (0-1.0); Monocytes % (A) 3 %; Neutrophils # (A) 7.9 k/uL (1.3-7.7); Neutrophils % (A) 75 %; Platelet Count 133 k/uL (150-450); RBC 3.37 m/uL (3.80-5.40); RDW 13.4 % (11.5-15.5); WBC 10.6 k/uL (3.8-10.6)
[2020-11-06] MEDS: ACETAMINOPHEN TAB 500 MG TAB PO SCH ×3 (07:25→21:24)
[2020-11-06] MEDS: ACETAMINOPHEN IV (For NPO) 1,000 MG in EMPTY BAG 1 BAG IVPB SCH (07:50)
[2020-11-06 08:10] LABS: Large Platelets Present
[2020-11-06] MEDS: SENNOSIDES-DOCUSATE SODIUM 1 EACH TAB PO SCH ×3 (21:25→21:26)
[2020-11-07] MEDS: IBUPROFEN 600 MG TAB PO SCH ×3 (00:08→09:29)
[2020-11-07] MEDS: LACTATED RINGERS 1,000 ML IV SCH ×2 (02:37→02:45)
[2020-11-07] MEDS: IBUPROFEN IV 800 MG in SODIUM CHLORIDE 0.9% 250 ML IV SCH ×2 (02:44→02:45)
[2020-11-07] MEDS: ACETAMINOPHEN TAB 500 MG TAB PO SCH ×3 (02:55→13:29)
--- NOTE | 2020-11-07 08:40 | P.PNOBGPC ---
Subjective - Subjective Principal diagnosis: pod1 ltcs Interval history: Patient is doing well. She is ambulating and voiding without difficulty. Pain is well-controlled. She is breast-feeding with some difficulty and using a nipple shield. Her lochia is minimal. Patient reports: Reports appetite normal, Reports voiding normally, Reports pain well controlled, Reports ambulating normally : doing well, nursing well Objective - Vital Signs Latest vital signs: Vital Signs Temp Pulse Resp BP Pulse Ox 11/07/20 05:00 16 98 11/07/20 02:58 16 11/07/20 01:00 16 98 11/07/20 00:00 98.0 F 67 16 124/69 98 11/06/20 23:00 16 11/06/20 21:00 16 98 11/06/20 20:00 97.9 F 67 16 127/70 98 11/06/20 19:00 16 11/06/20 16:40 16 97 11/06/20 16:00 98.3 F 69 16 137/75 11/06/20 15:00 16 11/06/20 13:00 97.7 F 70 16 141/79 97 11/06/20 12:00 97.7 F 70 16 141/79 11/06/20 11:00 97.7 F 70 16 141/79 11/06/20 09:00 16 97 Intake and Output 11/06/20 11/07/20 11/07/20 22:59 06:59 14:59 Other: # Voids 2 - Exam Extremities: Present: normal, edema Abdomen: Present: normal appearance Incision: Present: normal, intact Uterus: Present: normal, firm Assessment and Plan (1) Term Current Visit: Yes Status: Acute Code(s): Z34.90 - ENCNTR FOR SUPRVSN OF NORMAL , UNSP, UNSP TRIMESTER SNOMED Code(s): 68416879 (2) Single umbilical artery Current Visit: Yes Status: Acute Code(s): Q27.0 - CONGENITAL ABSENCE AND HYPOPLASIA OF UMBILICAL ARTERY SNOMED Code(s): 107963320 (3) Positive GBS test Current Visit: Yes Status: Acute Code(s): B95.1 - STREPTOCOCCUS, GROUP B, [facility] Code(s): 403436312 (4) S/P section Current Visit: Yes Status: Acute Code(s): Z98.891 - HISTORY OF UTERINE SCAR FROM PREVIOUS SURGERY SNOMED Code(s): 195313472 Plan: 20-year-old G1 now P1 status post primary for arrest of descent and dilation. Patient is doing well on this postoperative day #1. Plan to continue routine postoperative care and anticipate discharge home on postop day 2.
--- NOTE | 2020-11-07 08:43 | P.DS ---
Providers Date of admission: 11/05/20 06:06 Expected date of discharge: 11/07/20 Attending physician: Jadyn Jc Primary care physician: Stated None - Discharge Diagnosis(es) (1) Term Current Visit: Yes Status: Acute (2) Single umbilical artery Current Visit: Yes Status: Acute (3) Positive GBS test Current Visit: Yes Status: Acute (4) S/P section Current Visit: Yes Status: Acute Hospital Course: 20-year-old G1 now P1 presented to labor and delivery on Thursday for planned induction of labor at 39-0/7 weeks. Patient had known single umbilical artery. Patient had had reassuring testing throughout care. For full details on this patient please see the dictated history and physical. Patient was admitted to labor and delivery and Pitocin induction of labor was begun. Patient progressed very slowly through labor amniotomy was performed and clear fluid was obtained. Patient did eventually become uncomfortable and requested epidural placement. Epidural was placed without difficulty by the anesthesia department. Patient was noted to have arrest of dilation for 4 hours at 5 cm. At that time discussion with patient regarding arrest of dilation was had, she elected primary . Patient was taken back for primary which was completed without difficulty. For full details on the please see the operative report. On this postoperative day #2 she is ambulating and voiding without difficulty. She is tolerating regular diet without nausea or vomiting. She is breast-feeding with a nipple shield. She denies concerns and states she is ready for discharge home. Patient Condition at Discharge: Good Plan - Discharge Summary New Discharge Prescriptions: No Action Cephalexin [Keflex] 500 mg PO BID 1 Days #14 cap Discharge Medication List Cephalexin [Keflex] 500 mg PO BID 1 Days #14 cap 06/07/20 [Rx] Follow up Appointment(s)/Referral(s): Jadyn Jc DO [Doctor of Osteopathic Medicine] - 2 Weeks Patient Instructions/Handouts: (DC), (GEN) Activity/Diet/Wound Care/Special Instructions: [id number] ibuprofen 600 mg every 6 hours as needed for pain. She is currently alternating with Tylenol here in the hospital. Patient can expect menstrual-like bleeding for up to 6 weeks after delivery. Patient is to call the office and have a post operative check at 2 weeks. Patient is counseled that if she should have any concerns prior to this visit she should call the office. Discharge Disposition: HOME SELF-CARE
[2020-11-07 08:52] VITALS: BP 133/82; PULSE 63; RESP 20; TEMP 97.9
[2020-11-07] MEDS: SENNOSIDES-DOCUSATE SODIUM 1 EACH TAB PO SCH (09:29)
== END 2020-11-07 13:10 | disposition home or self-care (01) | DRG 788 ==
LOC: 4FBP 06:06
PROVIDERS: ADMIT Obstetrics & Gynecology Obstetrics; ATTEND Obstetrics & Gynecology Obstetrics
PROC: 10907ZC Drainage of Amniotic Fluid, Therapeutic from Products of Conception, Via Natural or Artificial Opening (ICD-10-PCS; 2020-11-05)
PROC: 3E033VJ Introduction of Other Hormone into Peripheral Vein, Percutaneous Approach (ICD-10-PCS; 2020-11-05)
PROC: 10D00Z1 Extraction of Products of Conception, Low, Open Approach (ICD-10-PCS; principal; 2020-11-05 19:57)
DX: O62.0 Primary inadequate contractions (principal); O99.824 Streptococcus B carrier state complicating childbirth; O99.513 Diseases of the respiratory system complicating pregnancy, third trimester; J45.909 Unspecified asthma, uncomplicated; O69.89X0 Labor and delivery complicated by other cord complications, not applicable or unspecified; Z37.0 Single live birth; Z3A.39 39 weeks gestation of pregnancy; Z87.891 Personal history of nicotine dependence
CPT/HCPCS: 85025; 86850; 86900; 86901; 88307

== ENCOUNTER 2021-03-29 11:03 | Emergency (ER) | payer OTHER, MEDICAID ==
[2021-03-29 11:19] VITALS: TEMP 97.8
[2021-03-29] MEDS ORDERED: ONDANSETRON 4 MG/2 ML VIAL IVP STA (11:23)
[2021-03-29] MEDS ORDERED: HYDROmorphone 0.5 MG/0.5 ML SYRINGE IVP STA ×2 (11:23→13:10)
[2021-03-29 11:28] VITALS: RESP 18
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
[2021-03-29] MEDS ORDERED: KETOROLAC 15 MG/ML 1 ML VIAL IVP STA (13:11)
[2021-03-29 13:15] VITALS: BP 136/89; PULSE 60
[2021-03-29] MEDS ORDERED: ACET/COD 300 MG/30 MG STARTER PACK 6 TAB BTL PO STA (13:22)
== END 2021-03-29 13:45 | disposition home or self-care (01) ==
LOC: EC 11:03
DX: S02.2XXA Fracture of nasal bones, initial encounter for closed fracture (principal); S93.431A Sprain of tibiofibular ligament of right ankle, initial encounter; S80.01XA Contusion of right knee, initial encounter; V89.2XXA Person injured in unspecified motor-vehicle accident, traffic, initial encounter; J45.909 Unspecified asthma, uncomplicated; Z87.891 Personal history of nicotine dependence; F12.90 Cannabis use, unspecified, uncomplicated
CPT/HCPCS: 70450; 70486; 72125; 96374; 96375; 96376; 99284